=== PATIENT | male | born 1970 | race Caucasian/White ===

== ENCOUNTER 2018-03-23 13:05 | Emergency (ER) | payer OTHER ==
--- NOTE | 2018-03-23 14:10 | EDPHY ---
H & P Time Seen by Provider: 03/23/18 13:36 HPI/ROS: CHIEF COMPLAINT: Vomiting, shortness of breath, toe pain HISTORY OF PRESENT ILLNESS: The patient is a 47-year-old male who has history of gout/pseudogout the presents emergency department multiple complaints. The patient's symptoms started on Monday. He developed nausea and vomiting roughly 2 hr after eating new can of candles soup. The patient had multiple episodes of vomiting over the next 48 hr. At the very end of his vomiting episodes he saw tinge of blood but has had no significant hematemesis. Patient's vomiting has resolved. He has had no abdominal pain. The patient also describes mild shortness of breath. He feels as though his"trachea is tight."He states this started after the multiple episodes of vomiting. Patient also developed left toe pain. This is typical of his gout/pseudogout. He states his uric acid levels were normal and he has been told he potentially has pseudogout or gout. The patient had a left over 30 mg prednisone tablet. Took this yesterday. He stated after taking the tablet his breathing improved. REVIEW OF SYSTEMS: My complete review of systems is negative except as mentioned in the HPI. Past Medical/Surgical History: Includes gout/pseudogout, bipolar disorder Smoking Status: Never smoked Physical Exam: Vitals noted GENERAL: Well-appearing, in no acute distress, alert. HEENT: Eyes normal to inspection, normal pharynx, no signs of dehydration. NECK: [No thyromegaly, no lymphadenopathy, supple. RESPIRATORY: Clear to auscultation bilaterally, no rales, rhonchi or wheezing. Normal CVS: Regular rate and rhythm, no rubs, murmurs, or gallops. ABDOMEN: Soft, nontender, nondistended, no organomegaly. BACK: Normal to inspection, no CVA tenderness. SKIN: Normal color, no rash, warm, dry. No pallor. EXTREMITIES: The patient has redness over the base of his left toe. There is mild tenderness to palpation. No significant discomfort with movement of the toe. No streaking up the leg. No pedal edema, no calf tenderness, no Homans sign or cords, no joint swelling. NEURO/PSYCH: Alert and oriented x3, normal mood and affect, normal motor sensory exam. Constitutional: Initial Vital Signs Temperature (C) 36.8 C 03/23/18 13:10 Heart Rate 122 H 03/23/18 13:10 Respiratory Rate 16 03/23/18 13:10 Blood Pressure 136/100 H 03/23/18 13:10 O2 Sat (%) 98 03/23/18 13:10 O2 Delivery Mode Room Air Allergies/Adverse Reactions: No Known Allergies Allergy (Unverified 03/23/18 13:08) Home Medications: Medication Instructions Recorded predniSONE 20 mg PO DAILY 4 Days tab 03/23/18 Medical Decision Making - Diagnostics Imaging Results: Imaging Impressions Chest X-Ray 03/23/18 14:12 Impression: Clear lungs. No acute process. ED Course/Re-evaluation: In the emergency department I discussed possible etiologies with the patient. I answered all his questions. IV was placed. Laboratory studies, EKG and chest x-ray were obtained. The patient was given Solu-Medrol 125 mg orally. This will treat both his breathing symptoms which improved after receiving prednisone yesterday and his toe pain. EKG shows normal sinus rhythm, normal rate, normal axis, normal intervals. There are no ST or T-wave abnormalities. EKG is normal as interpreted by me. Chest x-ray: No acute disease noted. Patient's CBC and chemistry unremarkable. LFTs are elevated slightly. Because of this a hepatitis panel was sent. I discussed the results with the patient. On recheck the patient was feeling well. He had no complaints. His abdomen was soft, nontender nondistended. I felt no hepatomegaly. There is no increased redness on the patient's toe. Patient states that he typically has gout/pseudogout episodes in his toe or ankle. This seems typical to him. I think infection is less likely. I discussed this with the patient. At this time he will observe. I will not start him on antibiotics. He will have close follow-up with Dr. Simpson. Patient is also aware that his hepatitis panel is pending. Differential Diagnosis: My differential includes but is not limited to bronchitis, pneumonia, reactive airway disease, esophagitis, tracheal irritation, aspiration, pancreatitis, cholecystitis, gout, pseudogout, septic joint, cellulitis - Data Points Laboratory Results: Laboratory Results 03/23/18 13:30 03/23/18 13:30 03/23/18 03/23/18 03/23/18 14:19 13:30 13:30 WBC RBC Hgb Hct MCV MCH MCHC RDW Plt Count MPV Neut % (Auto) Lymph % (Auto) [place] % (Auto) Eos % (Auto) Baso % (Auto) Nucleat RBC Rel Count Absolute Neuts (auto) Absolute Lymphs (auto) Absolute Monos (auto) Absolute Eos (auto) Absolute Basos (auto) Absolute Nucleated RBC Immature Gran % Immature Gran # PT 13.3 SEC SEC (12.0-15.0) INR 0.99 (0.83-1.16) APTT 22.7 SEC L SEC (23.0-38.0) Sodium 134 mEq/L L mEq/L (135-145) Potassium 3.5 mEq/L mEq/L (3.3-5.0) Chloride 97 mEq/L mEq/L (97-110) Carbon Dioxide 20 mEq/l L mEq/l (22-31) Anion Gap 17 mEq/L H mEq/L (8-16) BUN 24 mg/dL H mg/dL (7-23) Creatinine 1.4 mg/dL H mg/dL (0.7-1.3) Estimated GFR > 60 Glucose 137 mg/dL H mg/dL (70-100) Calcium 10.7 mg/dL H mg/dL (8.5-10.4) Phosphorus 3.1 mg/dL mg/dL (2.5-4.5) Total Bilirubin 1.5 mg/dL H mg/dL (0.1-1.4) Conjugated Bilirubin 0.3 mg/dL mg/dL (0.0-0.5) Unconjugated Bilirubin 1.2 mg/dL H mg/dL (0.0-1.1) AST 48 IU/L IU/L (17-59) ALT 60 IU/L IU/L (21-72) Alkaline Phosphatase 71 IU/L IU/L (38-126) POC Troponin I 0.01 ng/mL ng/mL (0.00-0.08) Total Protein 7.2 g/dL g/dL (6.3-8.2) Albumin 4.3 g/dL g/dL (3.5-5.0) Lipase 167 IU/L IU/L (23-300) 03/23/18 13:30 WBC 10.76 10^3/uL H 10^3/uL (3.80-9.50) RBC 4.99 10^6/uL 10^6/uL (4.40-6.38) Hgb 17.2 g/dL g/dL (13.7-17.5) Hct 48.3 % % (40.0-51.0) MCV 96.8 fL fL (81.5-99.8) MCH 34.5 pg H pg (27.9-34.1) MCHC 35.6 g/dL g/dL (32.4-36.7) RDW 12.6 % % (11.5-15.2) Plt Count 196 10^3/uL 10^3/uL (150-400) MPV 11.7 fL fL (8.7-11.7) Neut % (Auto) 74.2 % % (39.3-74.2) Lymph % (Auto) 15.0 % % (15.0-45.0) [place] % (Auto) 9.7 % % (4.5-13.0) Eos % (Auto) 0.3 % L % (0.6-7.6) Baso % (Auto) 0.4 % % (0.3-1.7) Nucleat RBC Rel Count 0.0 % % (0.0-0.2) Absolute Neuts (auto) 8.00 10^3/uL H 10^3/uL (1.70-6.50) Absolute Lymphs (auto) 1.61 10^3/uL 10^3/uL (1.00-3.00) Absolute Monos (auto) 1.04 10^3/uL H 10^3/uL (0.30-0.80) Absolute Eos (auto) 0.03 10^3/uL 10^3/uL (0.03-0.40) Absolute Basos (auto) 0.04 10^3/uL 10^3/uL (0.02-0.10) Absolute Nucleated RBC 0.00 10^3/uL 10^3/uL (0-0.01) Immature Gran % 0.4 % % (0.0-1.1) Immature Gran # 0.04 10^3/uL 10^3/uL (0.00-0.10) PT INR APTT Sodium Potassium Chloride Carbon Dioxide Anion Gap BUN Creatinine Estimated GFR Glucose Calcium Phosphorus Total Bilirubin Conjugated Bilirubin Unconjugated Bilirubin AST ALT Alkaline Phosphatase POC Troponin I Total Protein Albumin Lipase Medications Given: Discontinued Medications Methylprednisolone Sodium Succinate (Solu-Medrol) 125 mg IVP EDNOW ONE Stop: 03/23/18 14:13 Last Admin: 03/23/18 14:29 Dose: 125 mg Point of Care Test Results: Chemistry 03/23/18 14:19 POC Troponin I 0.01 ng/mL ng/mL (0.00-0.08) Departure - Departure Disposition: Home, Routine, Self-Care Clinical Impression: Toe pain, left, Shortness of breath Vomiting Qualifiers: Vomiting type: unspecified Vomiting Intractability: non-intractable Nausea presence: with nausea Qualified Code(s): R11.2 - Nausea with vomiting, unspecified Condition: Good Instructions: Acute Nausea and Vomiting (ED), Arthralgia (ED), Swollen Joint ( ED) Additional Instructions: You had mildly elevated liver function test. This will need to be rechecked. You have a hepatitis panel pending. Return to the emergency department with increased vomiting, abdominal pain, fever or any other concerns. Return if you have increased pain or swelling of your toe. Take ibuprofen for toe pain. Referrals: Chan Simpson MD [Primary Care Provider] - 2-3 days, if not improved Prescriptions: predniSONE 20 mg PO DAILY 4 Days tab
[2018-03-23] MEDS ORDERED: methylPREDNISolone SOD SUCC 125 MG/2 ML VIAL IVP ONE (14:12)
[2018-03-23 14:42] LABS: INR 0.99 (0.83-1.16); PROTIME(PATIENT) 13.3 SEC (12.0-15.0)
[2018-03-23 14:46] LABS: PLATELET COUNT 196 10^3/uL (150-400)
[2018-03-23 16:50] VITALS: BP 125/85
--- NOTE | 2018-03-23 20:15 | CPEKG ---
Test Reason : OPEN Blood Pressure : / mmHG Vent. Rate : 092 BPM Atrial Rate : 092 BPM P-R Int : 126 ms QRS Dur : 100 ms QT Int : 372 ms P-R-T Axes : 007 086 036 degrees QTc Int : 461 ms Sinus rhythm Low voltage, extremity leads Confirmed by Patience Malone ([id number]) on 03/23/2018 8:14:37 PM Referred By: Confirmed By:Patience Malone
== END 2018-03-23 16:50 | disposition home or self-care (01) ==
DX: M79.675 Pain in left toe(s) (principal); R06.02 Shortness of breath; R11.10 Vomiting, unspecified
CPT/HCPCS: 84484-PO; 96374; J2930